=== PATIENT | male | born 1975 | race Caucasian/White ===

== ENCOUNTER 2017-10-24 14:28 | Emergency (ER) | payer OTHER ==
[~2017-10-24] VITALS: Ht 175.3 cm; Wt 113.5 kg
[2017-10-24 14:33] VITALS: BP 150/85; PULSE 108; RESP 18; TEMP 98.2; O2SAT 97
[2017-10-24] MEDS ORDERED: HYDR-3516 PO (14:42)
[2017-10-24] MEDS ORDERED: ALPR.5 PO (14:42)
[2017-10-24] MEDS ORDERED: LISI-515 PO (14:42)
[2017-10-24 14:43] VITALS: BP 160/97; PULSE 104; RESP 20; O2SAT 95
[2017-10-24 14:56] VITALS: RESP 20; O2SAT 96
--- NOTE | 2017-10-24 14:57 | PD ---
HPI Chief Complaint: Chest Pain Time Seen by Provider: 14:47 Travel History International Travel<30 days: No Contact w/Intl Traveler<30days: No Traveled to known affect area: No History of Present Illness HPI Patient comes in complaining of chest pain, describes it as sharp, reproducible with pressure and movement, Patient states allergy to penicillin Past medical history significant for anxiety and hypertension as well as orthopedic surgery to neck and finger. PFSH Past Medical History Anxiety: Yes Hypertension: Yes Tetanus Vaccination: < 5 Years Influenza Vaccination: Yes Social History Alcohol Use: No Tobacco Use: No Substance Use: No Allergies-Medications (Allergen,Severity, Reaction): Coded Allergies: penicillin G (Verified Allergy, Severe, Hives, 10/24/17) Reported Meds & Prescriptions Reported Meds & Active Scripts Active Reported Lisinopril 20 Mg Tab 20 Mg PO DAILY Hydrocodone-Acetaminophen 5-325 mg Tab 1 Tab PO Q4H PRN Xanax (Alprazolam) 0.5 Mg Tab 0.5 Mg PO Q4H PRN Review of Systems General / Constitutional: No: Fever Eyes: No: Visual changes HENT: No: Headaches Cardiovascular: Positive: Chest Pain or Discomfort Respiratory: No: Shortness of Breath Gastrointestinal: No: Abdominal Pain Genitourinary: No: Dysuria Musculoskeletal: No: Pain Skin: No Rash Neurologic: No: Weakness Psychiatric: No: Depression Endocrine: No: Polydipsia Hematologic/Lymphatic: No: Easy Bruising Physical Exam Narrative GENERAL: SKIN: Warm and dry. HEAD: Atraumatic. Normocephalic. EYES: Pupils equal and round. No scleral icterus. No injection or drainage. ENT: No nasal bleeding or discharge. Mucous membranes pink and moist. NECK: Trachea midline. No JVD. CARDIOVASCULAR: Regular rate and rhythm. RESPIRATORY: No accessory muscle use. Clear to auscultation. Breath sounds equal bilaterally. GASTROINTESTINAL: Abdomen soft, non-tender, nondistended. MUSCULOSKELETAL: Extremities without clubbing, cyanosis, or edema. No obvious deformities. NEUROLOGICAL: Awake and alert. No obvious cranial nerve deficits. Motor grossly within normal limits. Five out of 5 muscle strength in the arms and legs. Normal speech. PSYCHIATRIC: Appropriate mood and affect; insight and judgment normal. Data Data Last Documented VS Vital Signs Date Time Temp Pulse Resp B/P (MAP) Pulse Ox O2 Delivery O2 Flow Rate FiO2 10/24/17 14:56 20 96 Room Air 10/24/17 14:43 104 10/24/17 14:33 98.2 Orders Orders Electrocardiogram (10/24/17 14:50) B-Type Natriuretic Peptide (10/24/17 14:50) Ckmb (Isoenzyme) Profile (10/24/17 14:50) Complete Blood Count With Diff (10/24/17 14:50) Comprehensive Metabolic Panel (10/24/17 14:50) D-Dimer (10/24/17 14:50) Magnesium (Mg) (10/24/17 14:50) Prothrombin Time / Inr (Pt) (10/24/17 14:50) Act Partial Throm Time (Ptt) (10/24/17 14:50) Troponin I (10/24/17 14:50) Lipase (10/24/17 14:50) Chest, Single Ap (10/24/17 14:50) Ecg Monitoring (10/24/17 14:50) Bilateral Bp Monitoring (10/24/17 14:50) Iv Access Insert/Monitor (10/24/17 14:50) Oximetry (10/24/17 14:50) Oxygen Administration (10/24/17 14:50) Sodium Chloride 0.9% Flush (Ns Flush) (10/24/17 15:00) CKMB (10/24/17 15:07) CKMB% (10/24/17 15:07) Labs Laboratory Tests Test 10/24/17 15:07 White Blood Count 8.0 TH/MM3 Red Blood Count 5.07 MIL/MM3 Hemoglobin 15.0 GM/DL Hematocrit 43.8 % Mean Corpuscular Volume 86.4 FL Mean Corpuscular Hemoglobin 29.5 PG Mean Corpuscular Hemoglobin Concent 34.2 % Red Cell Distribution Width 14.0 % Platelet Count 262 TH/MM3 Mean Platelet Volume 7.8 FL Neutrophils (%) (Auto) 59.1 % Lymphocytes (%) (Auto) 29.4 % Monocytes (%) (Auto) 9.7 % Eosinophils (%) (Auto) 1.0 % Basophils (%) (Auto) 0.8 % Neutrophils # (Auto) 4.7 TH/MM3 Lymphocytes # (Auto) 2.3 TH/MM3 Monocytes # (Auto) 0.8 TH/MM3 Eosinophils # (Auto) 0.1 TH/MM3 Basophils # (Auto) 0.1 TH/MM3 CBC Comment DIFF FINAL Differential Comment Prothrombin Time 10.0 SEC Prothromb Time International Ratio 1.0 RATIO Activated Partial Thromboplast Time 26.4 SEC D-Dimer Quantitative (PE/DVT) LESS THAN 0.19 MG/L FEU Blood Urea Nitrogen 16 MG/DL Creatinine 1.08 MG/DL Random Glucose 128 MG/DL Total Protein 8.2 GM/DL Albumin 4.1 GM/DL Calcium Level 9.4 MG/DL Magnesium Level 2.1 MG/DL Alkaline Phosphatase 83 U/L Aspartate Amino Transf (AST/SGOT) 41 U/L Alanine Aminotransferase (ALT/SGPT) 64 U/L Total Bilirubin 0.5 MG/DL Sodium Level 138 MEQ/L Potassium Level 4.0 MEQ/L Chloride Level 104 MEQ/L Carbon Dioxide Level 24.0 MEQ/L Anion Gap 10 MEQ/L Estimat Glomerular Filtration Rate 74 ML/MIN Total Creatine Kinase 148 U/L Creatine Kinase MB 1.0 NG/ML Troponin I LESS THAN 0.02 NG/ML B-Type Natriuretic Peptide 3 PG/ML Lipase 284 U/L [facility] Medical Decision Making Medical Screen Exam Complete: Yes Emergency Medical Condition: Yes Medical Record Reviewed: Yes Interpretation(s) EKG shows baseline motion artifact, sinus tach at approximately 100 bpm, no evidence of any ST elevation OR pattern noted. Differential Diagnosis Chest wall pain versus rib fracture versus pneumothorax versus pneumonia Narrative Course CBC is without any evidence of leukocytosis, anemia, left shift, normal platelet count Coagulation profile is within normal limits D-dimer is negative Electrolytes are all within normal limits, normal liver and pancreatic enzymes, first set of cardiac enzymes negative Chest x-ray read by radiologist as no acute cardiopulmonary disease Diagnosis Primary Impression: Chest wall pain Patient Instructions: Chest Wall Pain (GEN), General Instructions Scripts Cyclobenzaprine (Flexeril) 10 Mg Tab 10 MG PO TID for Muscle Spasm, #15 TAB 0 Refills Prov: Chucho Katz MD 10/24/[address] (Naproxen EC) 375 Mg Tabdr 375 MG PO BID, #14 TAB 0 Refills Prov: Chucho Katz MD 10/24/17 Disposition: 01 DISCHARGE HOME Condition: Stable Chucho Katz MD October 24, 2017 14:57
[2017-10-24] MEDS ORDERED: SODIUM CHLORIDE 0.9% FLUSH 10 ML FLUSH IVF PRN (15:00)
--- NOTE | 2017-10-24 15:19 | RADRPT ---
EXAM DATE: 10/24/2017 3:10 PM EDT AGE/SEX: 42 years / Male INDICATIONS: Chest pain. CLINICAL DATA: This is the patient's initial encounter. Patient reports that signs and symptoms have been present for > 1 year and indicates a pain score of 9/10. MEDICAL/SURGICAL HISTORY: . Ongoing chest pain for 2 years. Being seen at [facility] None. COMPARISON: No prior [facility] exams available for comparison. FINDINGS: A single AP view of the chest demonstrates the lungs to be symmetrically aerated without evidence of mass, infiltrate or effusion. The cardiomediastinal contours are unremarkable. Osseous structures a re intact. CONCLUSION: No acute cardiopulmonary disease. Electronically signed by: Rashawn Schwarz MD 10/24/2017 3:18 PM EDT
[2017-10-24 15:23] LABS: AUTOMATED NEUTROPHIL # 4.7 TH/MM3 (1.8-7.7); BASOPHIL # 0.1 TH/MM3 (0-0.2); BASOPHIL % 0.8 % (0.0-2.0); EOSINOPHIL # 0.1 TH/MM3 (0-0.4); HEMATOCRIT 43.8 % (39.0-51.0); LYMPH % 29.4 % (9.0-44.0); LYMPHOCYTE # 2.3 TH/MM3 (1.0-4.8); MEAN CELL VOLUME 86.4 FL (80.0-100.0); MEAN CORPUSCULAR HEMOGLOBIN 29.5 PG (27.0-34.0); MEAN CORPUSCULAR HGB CONC 34.2 % (32.0-36.0); MEAN PLATELET VOLUME 7.8 FL (7.0-11.0); MONO % 9.7 % (0.0-8.0); MONOCYTE # 0.8 TH/MM3 (0-0.9); NEUT % 59.1 % (16.0-70.0); PLATELET COUNT 262 TH/MM3 (150-450); RED BLOOD COUNT 5.07 MIL/MM3 (4.50-5.90)
[2017-10-24 15:41] LABS: D-DIMER LESS THAN 0.19 MG/L FEU (0.00-0.50)
[2017-10-24 15:55] LABS: ALBUMIN 4.1 GM/DL (3.4-5.0); ALKALINE PHOSPHATASE 83 U/L (45-117); ALT (GPT) 64 U/L (12-78); AST (GOT) 41 U/L (15-37); BLOOD UREA NITROGEN 16 MG/DL (7-18); CALCIUM 9.4 MG/DL (8.5-10.1); CHLORIDE 104 MEQ/L (98-107); CREATININE 1.08 MG/DL (0.60-1.30); GLOMERULAR FILTRATION RATE 74 ML/MIN (>89); GLUCOSE,RANDOM 128 MG/DL (74-106); MAGNESIUM 2.1 MG/DL (1.5-2.5); SODIUM (NA) 138 MEQ/L (136-145); TOTAL BILIRUBIN ADULT 0.5 MG/DL (0.2-1.0); TOTAL PROTEIN 8.2 GM/DL (6.4-8.2); TROPONIN I LESS THAN 0.02 NG/ML (0.02-0.05)
[2017-10-24] MEDS ORDERED: NAPR375T4 PO (16:16)
[2017-10-24] MEDS ORDERED: CYCL10TA PO (16:16)
--- NOTE | 2017-10-25 14:51 | EKG ---
Date Performed: 10/24/2017 Time Performed: 15:11:49 PTAGE: 42 years EKG: SINUS TACHYCARDIA ABNORMAL RHYTHM ECG NO PREVIOUS TRACING DOCTOR: Justin Nguyen Interpretating Date/Time 10/25/2017 14:46:58
== END 2017-10-24 17:19 | disposition home or self-care (01) ==
LOC: NEPE 14:28
DX: R07.89 Other chest pain (principal); I10 Essential (primary) hypertension; F41.9 Anxiety disorder, unspecified; Z79.899 Other long term (current) drug therapy
CPT/HCPCS: 71045; 80053; 82550; 82552; 83690; 83735; 83880; 84484; 85025; 85379; 85610; 85730; 93005; 99285